=== PATIENT | female | born 1970 | race Caucasian/White ===

== ENCOUNTER 2016-05-14 19:02 | Emergency (ER) | payer MEDICAID ==
[2016-05-14] MEDS ORDERED: HYDROcod/ACETAM 5/325 MG TABLET PO STA (20:12)
[2016-05-14] MEDS ORDERED: HYDROcod/ACETAM 5/325 MG TABLET ONE (20:13)
[2016-05-14] MEDS ORDERED: ONDANSETRON ODT 4 MG TABLET ONE (20:16)
[2016-05-14] MEDS ORDERED: ONDANSETRON ODT 4 MG TABLET TL STA (20:18)
[2016-05-14] MEDS ORDERED: KETOROLAC 60 MG/2 ML VIAL ONE (21:09)
[2016-05-14] MEDS ORDERED: KETOROLAC 60 MG/2 ML VIAL IM STA (21:10)
== END 2016-05-14 21:44 | disposition home or self-care (01) ==
DX: S80.02XA Contusion of left knee, initial encounter (principal); W22.8XXA Striking against or struck by other objects, initial encounter; I10 Essential (primary) hypertension; E10.8 Type 1 diabetes mellitus with unspecified complications; Z79.4 Long term (current) use of insulin; Z79.84 Long term (current) use of oral hypoglycemic drugs; F17.200 Nicotine dependence, unspecified, uncomplicated
CPT/HCPCS: 73564; 96372; 99283; 99284; A9270; Q0162

== ENCOUNTER 2016-10-17 22:58 | Outpatient (CLI) | payer MEDICAID | END 2016-10-17 22:59 | disposition EMS.NT | LOC: EMS 22:58 | PROVIDERS: ATTEND Surgery | DX: R51 Headache (principal); Y04.2XXA Assault by strike against or bumped into by another person, initial encounter ==

== ENCOUNTER 2017-02-18 11:19 | Outpatient (CLI) | payer MEDICAID ==
--- NOTE | 2017-02-18 13:59 | XRAY Report ---
THREE VIEW LUMBAR SPINE: 02/18/2017 CLINICAL INDICATION: Pain. FINDINGS: AP, lateral, and coned down views of the lumbar spine demonstrate moderate degenerative di sk disease, with minimal degenerative dextroscoliosis. There is no evidence of acute fracture. The ger wel gas pattern is unremarkable. IMPRESSION: MODERATE DEGENERATIVE CHANGES, WITH MILD DEGENERATIVE DEXTROSCOLIOSIS. JOB #: [id number] EXT JOB #:[id number]
--- NOTE | 2017-02-18 14:01 | XRAY Report ---
RIGHT HIP AND PELVIS: 02/18/2017 CLINICAL INDICATION: Right hip pain. FINDINGS: Frontal view of the hips and pelvis and frogleg lateral view of the right hip demonstrate mild degenerative changes in the right hip. Mild degenerative changes are also seen in the sacroiliac joints. There is no evidence of acute fracture or dislocation. IMPRESSION: MILD OSTEOARTHRITIS. JOB #: [id number] EXT JOB #:[id number]
== END 2017-02-18 11:20 | disposition home or self-care (01) ==
LOC: DI 11:19
PROVIDERS: ATTEND Family Medicine
DX: M51.36 Other intervertebral disc degeneration, lumbar region (principal); M41.56 Other secondary scoliosis, lumbar region; M16.11 Unilateral primary osteoarthritis, right hip
CPT/HCPCS: 72100

== ENCOUNTER 2017-05-11 10:41 | Outpatient (CLI) | payer MEDICAID ==
[2017-05-11 19:07] LABS: BILIRUBIN,URINE NEGATIVE (NEGATIVE); GLUCOSE, URINE (UA) 500 mg/dL (NEGATIVE); KETONES,URINE (UA) NEGATIVE (NEGATIVE); LEUKOCYTE ESTERASE, URINE NEGATIVE (NEGATIVE); NITRITE,URINE NEGATIVE (NEGATIVE); OCCULT BLOOD,URINE NEGATIVE (NEGATIVE); PROTEIN,URINE NEGATIVE (NEGATIVE); UROBILINOGEN,URINE 0.2 (NORMAL) E.U./dL (NORMAL)
[2017-05-11 19:09] LABS: BASOPHILS # (AUTO) 0.1 10^3/uL (0.0-0.1); BASOPHILS % (AUTO) 0.8 %; EOSINOPHILS # (AUTO) 0.2 10^3/uL (0.0-0.7); EOSINOPHILS % (AUTO) 1.5 %; HGB - HEMOGLOBIN 14.2 g/dL (12.0-16.0); LYMPHOCYTES # (AUTO) 3.1 10^3/uL (1.5-3.5); LYMPHOCYTES % (AUTO) 25.6 %; MEAN CORPUSCULAR HEMOGLOBIN 31.4 pg (27.0-31.0); MEAN CORPUSCULAR HGB CONC 33.9 g/dL (32.0-36.0); MEAN CORPUSCULAR VOLUME 92.8 fL (81.0-99.0); MEAN PLATELET VOLUME 9.2 fL (7.9-10.8); MONOCYTES # (AUTO) 0.7 10^3/uL (0.0-1.0); MONOCYTES % (AUTO) 5.6 %; NEUTROPHILS # (AUTO) 7.9 10^3/uL (1.5-6.6); NEUTROPHILS % (AUTO) 66.5 %; PLT - PLATELET COUNT 310 10^3/uL (130-450); RED BLOOD COUNT 4.52 10^6/uL (4.20-5.40); RED CELL DISTRIBUTION WIDTH 13.9 % (12.0-15.0); WHITE BLOOD COUNT 11.9 x10^3/uL (4.8-10.8)
[2017-05-11 19:16] LABS: CLARITY,URINE CLEAR (CLEAR)
[2017-05-11 19:17] LABS: BACTERIA,URINE Few /HPF (None Seen); RBC,URINE 0-5 /HPF (0-5); SQUAMOUS EPITHELIAL CELL,UR MOD Squamous (<= Few)
[2017-05-11 19:36] LABS: ALBUMIN/GLOBULIN RATIO 1.2 (1.0-2.2); ALKALINE PHOSPHATASE 61 IU/L (42-121); ALT ALANINE AMINOTRANSFERASE 35 IU/L (10-60); AST ASPARTATE AMINOTRANSFERASE 29 IU/L (10-42); BILIRUBIN,TOTAL 0.8 mg/dL (0.2-1.0); BUN - BLOOD UREA NITROGEN 12 mg/dL (6-20); CALCIUM 9.1 mg/dL (8.5-10.3); CARBON DIOXIDE - CO2 24 mmol/L (21-32); CHLORIDE 100 mmol/L (101-111); CHOL/HDL RATIO 4.2 (<4.4); CHOLESTEROL 164 mg/dL; CREATININE 0.6 mg/dL (0.4-1.0); GFR - MDRD 106 (>89); GLUCOSE 228 mg/dL (70-100); HB2 TOTAL 15.7 g/dL; HDL CHOLESTEROL 39 mg/dL; HEMOGLOBIN A1C 1.66 g/dL; HEMOGLOBIN A1C % 11.8 % (4.6-6.2); LDL CHOLESTEROL,CALCULATED 97 mg/dL; LDL/HDL RATIO 2.5 (<4.4); SODIUM 134 mmol/L (135-145); TOTAL PROTEIN 7.4 g/dL (6.7-8.2); VLDL CHOLESTEROL 28 mg/dL
== END 2017-05-11 10:42 ==
LOC: LAB.WCP 10:41
PROVIDERS: ATTEND Family Medicine
DX: E11.9 Type 2 diabetes mellitus without complications (principal); R30.0 Dysuria
CPT/HCPCS: 36415; 80053; 80061; 81001; 83036; 83721; 84443; 85025

== ENCOUNTER 2017-06-13 10:52 | Emergency (ER) | payer MEDICAID ==
[2017-06-13 11:41] LABS: BASOPHILS # (AUTO) 0.1 10^3/uL (0.0-0.1); BASOPHILS % (AUTO) 0.8 %; EOSINOPHILS # (AUTO) 0.3 10^3/uL (0.0-0.7); EOSINOPHILS % (AUTO) 1.9 %; LYMPHOCYTES # (AUTO) 2.5 10^3/uL (1.5-3.5); MEAN CORPUSCULAR HEMOGLOBIN 31.3 pg (27.0-31.0); MEAN CORPUSCULAR VOLUME 91.9 fL (81.0-99.0); MEAN PLATELET VOLUME 8.2 fL (7.9-10.8); MONOCYTES # (AUTO) 0.8 10^3/uL (0.0-1.0); MONOCYTES % (AUTO) 6.2 %; NEUTROPHILS # (AUTO) 9.6 10^3/uL (1.5-6.6); NEUTROPHILS % (AUTO) 72.1 %; PLT - PLATELET COUNT 262 10^3/uL (130-450); RED BLOOD COUNT 4.79 10^6/uL (4.20-5.40); RED CELL DISTRIBUTION WIDTH 13.1 % (12.0-15.0); WHITE BLOOD COUNT 13.3 x10^3/uL (4.8-10.8)
[2017-06-13 11:57] LABS: ALBUMIN 4.2 g/dL (3.2-5.5); ALBUMIN/GLOBULIN RATIO 1.1 (1.0-2.2); ALKALINE PHOSPHATASE 73 IU/L (42-121); ALT ALANINE AMINOTRANSFERASE 40 IU/L (10-60); AST ASPARTATE AMINOTRANSFERASE 42 IU/L (10-42); BILIRUBIN,TOTAL 1.8 mg/dL (0.2-1.0); BUN - BLOOD UREA NITROGEN 15 mg/dL (6-20); CALCIUM 9.1 mg/dL (8.5-10.3); CARBON DIOXIDE - CO2 25 mmol/L (21-32); CHLORIDE 97 mmol/L (101-111); CREATININE 0.7 mg/dL (0.4-1.0); GFR - MDRD 89 (>89); GLUCOSE 418 mg/dL (70-100); SODIUM 132 mmol/L (135-145)
[2017-06-13 11:58] LABS: LIPASE < 10 U/L (22-51)
[2017-06-13 12:47] LABS: BILIRUBIN,URINE NEGATIVE (NEGATIVE); GLUCOSE, URINE (UA) >=1000 mg/dL (NEGATIVE); KETONES,URINE (UA) NEGATIVE (NEGATIVE); LEUKOCYTE ESTERASE, URINE NEGATIVE (NEGATIVE); NITRITE,URINE NEGATIVE (NEGATIVE); OCCULT BLOOD,URINE NEGATIVE (NEGATIVE); PH,URINE 5.5 PH (5.0-7.5); PROTEIN,URINE NEGATIVE (NEGATIVE); UROBILINOGEN,URINE 1 (NORMAL) E.U./dL (NORMAL)
[2017-06-13 12:50] LABS: CLARITY,URINE CLEAR (CLEAR)
[2017-06-13 12:51] LABS: HCG UR QUAL NEGATIVE
[2017-06-13 13:26] VITALS: BP 122/90
== END 2017-06-13 14:15 | disposition left against medical advice (07) ==
LOC: ED 10:52
DX: Z53.21 Procedure and treatment not carried out due to patient leaving prior to being seen by health care provider (principal)
CPT/HCPCS: 36415; 80053; 81001; 81003; 81025; 83690; 85025; 87086

== ENCOUNTER 2017-06-25 14:34 | Emergency (ER) | payer MEDICAID ==
[2017-06-25 14:41] VITALS: BP 145/86
--- NOTE | 2017-06-25 14:46 | ED Physician Documentation ---
History of Present Illness - Stated complaint Stated Complaint: TOOTH PX - Chief complaint Chief Complaint: Heent - History obtained from History obtained from: Patient - History of Present Illness Timing: Other (4 days ago she had a right maxillary canine extracted. For the last 2 days she has had increased pain and facial swelling but no fevers.) Review of Systems Constitutional: denies: Fever, Chills Nose: denies: Rhinorrhea / runny nose, Congestion Throat: denies: Sore throat Cardiac: denies: Chest pain / pressure PD PAST MEDICAL HISTORY - Past Medical History Respiratory: Asthma Neuro: Head injury Endocrine/Autoimmune: Type 1 diabetes - Past Surgical History Past Surgical History: No Ortho: Carpal Tunnel surgery, Other - Present Medications Home Medications: Ambulatory Orders Medication Instructions Recorded Confirmed Insulin Glargine [Lantus] 45 units SQ BID 05/14/16 05/14/16 Metformin HCl [Fortamet] 1,000 mg PO BID 05/14/16 05/14/16 Paroxetine HCl [Paxil] 30 mg PO BID 05/14/16 05/14/16 glipiZIDE [Glucotrol] 5 mg PO DAILY 05/14/16 05/14/16 Gabapentin [Gabapentin] 900 mg ORAL DAILY 06/13/17 06/13/17 busPIRone [Buspar] 5 mg PO BID 06/13/17 06/13/17 hydrOXYzine HCl [Hydroxyzine HCl] 10 mg PO 06/13/17 Clindamycin [Cleocin] 300 mg PO Q6H 10 Days capsule 06/25/17 HYDROcod/ACETAM 5/325 [[place] 5/325] 1 - 2 ea PO Q6H PRN #10 tablet 06/25/17 - Allergies Allergies/Adverse Reactions: Allergies Allergy/AdvReac Type Severity Reaction Status Date / Time Iodinated Contrast- Oral and Allergy Edema Verified 06/25/17 14:41 IV Dye [Iodinated Contrast Media - Oral and] - Social History Does the pt smoke?: Yes Smoking Status: Current every day smoker Does the pt drink ETOH?: No Does the pt have substance abuse?: Yes - Immunizations Immunizations are current?: No Immunizations: TDAP >10years/unknown - POLST Patient has POLST: No PD ED PE NORMAL - Vitals Vital signs reviewed: Yes - General General: Alert and oriented X 3, No acute distress - HEENT HEENT: Other (She has generally poor dentition with a lot of receding gum lines and gingivitis. There is an extraction site over right maxillary canine that does not have dry socket but it is quite tender and she is very mild overlying facial swelling. There is no trismus or sublingual edema.) - Neuro Neuro: Alert and oriented X 3, Normal speech Results - Vitals Vitals: Vital Signs - 24 hr 06/25/17 14:39 Temperature 36.5 C Heart Rate 98 Respiratory 18 Rate Blood Pressure 145/86 H O2 Saturation 95 Oxygen O2 Source Room air Departure - Departure Disposition: Home, Self Care Clinical Impression: Status post tooth extraction, Pain due to dental caries Condition: Good Record reviewed to determine appropriate education?: Yes Instructions: ED Tooth Pain Prescriptions: Clindamycin [Cleocin] 300 mg PO Q6H 10 Days capsule HYDROcod/ACETAM 5/325 [[place] 5/325] 1 - 2 ea PO Q6H PRN #10 tablet PRN Reason: Pain Comments: Follow-up with your dentist Tuesday or Tuesday. Return if worse. Do not drink or drive while taking narcotic pain medication. Note that many narcotic pain relievers also contain Tylenol/acetaminophen. Please ensure that your total dose of acetaminophen from all sources does not exceed 3 g (3000 mg) per day. You may get constipated while on this medication. Take a stool softener such as Colace twice a day while you are on it. Also add an bybg-[id number] laxative such as senna or MiraLAX on any day that you do not have a bowel movement. If you received a narcotic pain medication or sedative while in the emergency department, do not drive for the next 24 hours. Your blood pressure was elevated today on check into the emergency department. This does not mean that you have hypertension, it is a common phenomenon to come to the emergency department and have elevated blood pressure. I recommend that you see your primary care physician within the week to have it rechecked when you are feeling better.
== END 2017-06-25 14:50 | disposition home or self-care (01) ==
LOC: ED 14:34
DX: K02.9 Dental caries, unspecified (principal); K08.89 Other specified disorders of teeth and supporting structures; K05.10 Chronic gingivitis, plaque induced; Z98.818 Other dental procedure status; R03.0 Elevated blood-pressure reading, without diagnosis of hypertension; E10.9 Type 1 diabetes mellitus without complications; Z79.4 Long term (current) use of insulin; F17.200 Nicotine dependence, unspecified, uncomplicated
CPT/HCPCS: 99281; 99283

== ENCOUNTER 2017-07-05 19:57 | Outpatient (CLI) | payer MEDICAID ==
--- NOTE | 2017-07-06 12:27 | Ultrasound Report ---
PELVIC ULTRASOUND: 07/05/2017 HISTORY: Pelvic pain. Last menstrual period was 01/31/2017. TECHNIQUE: Real-time scanning by the piano player with saved static images reviewed. Transabdominal approach for global evaluation. Endovaginal scanning for detailed assessment of the endometrium and ovaries. COMPARISON: None. FINDINGS: Exam is somewhat limited secondary to the patient's body habitus. UTERUS: 7.4 x 3.3 x 4.1 cm, grossly normal echotexture, anteverted configuration. Volume 52 mL Endometrial echo thickness 2 mm. Right ovary: 1.9 x 1.5 cm seen transabdominally only. Grossly normal echotexture and blood flow. Left ovary: Not seen by either transabdominal or transvaginal approach. No adnexal masses are seen. Free fluid: None. IMPRESSION: NEGATIVE PELVIC ULTRASOUND SOMEWHAT LIMITED BY PATIENT SCANNING CHARACTERISTICS. TD: 07/06/2017 12:26 ALYSE
== END 2017-07-05 19:58 | disposition home or self-care (01) ==
LOC: DI 19:57
PROVIDERS: ATTEND Family Medicine
DX: R10.2 Pelvic and perineal pain (principal)
CPT/HCPCS: 76830; 76856

== ENCOUNTER 2017-09-01 08:00 | Outpatient (CLI) | payer MEDICAID ==
[2017-09-01 12:39] LABS: BASOPHILS # (AUTO) 0.1 10^3/uL (0.0-0.1); EOSINOPHILS # (AUTO) 0.2 10^3/uL (0.0-0.7); EOSINOPHILS % (AUTO) 3.4 %; HGB - HEMOGLOBIN 15.3 g/dL (12.0-16.0); LYMPHOCYTES # (AUTO) 2.4 10^3/uL (1.5-3.5); LYMPHOCYTES % (AUTO) 33.7 %; MEAN CORPUSCULAR HEMOGLOBIN 31.4 pg (27.0-31.0); MEAN CORPUSCULAR HGB CONC 34.4 g/dL (32.0-36.0); MEAN CORPUSCULAR VOLUME 91.2 fL (81.0-99.0); MEAN PLATELET VOLUME 9.5 fL (7.9-10.8); MONOCYTES # (AUTO) 0.5 10^3/uL (0.0-1.0); MONOCYTES % (AUTO) 7.4 %; NEUTROPHILS # (AUTO) 3.9 10^3/uL (1.5-6.6); NEUTROPHILS % (AUTO) 54.5 %; PLT - PLATELET COUNT 254 10^3/uL (130-450); RED BLOOD COUNT 4.88 10^6/uL (4.20-5.40); RED CELL DISTRIBUTION WIDTH 13.3 % (12.0-15.0); WHITE BLOOD COUNT 7.2 x10^3/uL (4.8-10.8)
[2017-09-01 13:05] LABS: ALBUMIN/GLOBULIN RATIO 1.1 (1.0-2.2); ALKALINE PHOSPHATASE 66 IU/L (42-121); ALT ALANINE AMINOTRANSFERASE 31 IU/L (10-60); AST ASPARTATE AMINOTRANSFERASE 28 IU/L (10-42); BILIRUBIN,TOTAL 0.9 mg/dL (0.2-1.0); BUN - BLOOD UREA NITROGEN 13 mg/dL (6-20); CARBON DIOXIDE - CO2 27 mmol/L (21-32); CHLORIDE 98 mmol/L (101-111); CHOL/HDL RATIO 5.2 (<4.4); CHOLESTEROL 194 mg/dL; CREATININE 0.6 mg/dL (0.4-1.0); GFR - MDRD 106 (>89); GLUCOSE 320 mg/dL (70-100); HB2 TOTAL 16.9 g/dL; HDL CHOLESTEROL 37 mg/dL; HEMOGLOBIN A1C 1.9 g/dL; HEMOGLOBIN A1C % 12.4 % (4.6-6.2); LDL CHOLESTEROL,CALCULATED 118 mg/dL; LDL/HDL RATIO 3.2 (<4.4); SODIUM 132 mmol/L (135-145); TOTAL PROTEIN 7.7 g/dL (6.7-8.2); VLDL CHOLESTEROL 39 mg/dL
== END 2017-09-01 08:01 | disposition home or self-care (01) ==
LOC: LAB.WCP 08:00
PROVIDERS: ATTEND Family Medicine
DX: E11.65 Type 2 diabetes mellitus with hyperglycemia (principal)
CPT/HCPCS: 36415; 80053; 80061; 83036; 83721; 84443; 85025